=== PATIENT | female | born 1995 | race Caucasian/White ===

== ENCOUNTER → 2022-05-02 14:04 | Outpatient (BNVA) | payer SELFPAY | PROVIDERS: PCP Pediatrics Adolescent Medicine | DX: Z02.83 Encounter for blood-alcohol and blood-drug test (principal) ==

== ENCOUNTER → 2023-08-29 10:19 | Outpatient (BNVA) | payer SELFPAY | PROVIDERS: PCP Pediatrics Adolescent Medicine | DX: Z02.0 Encounter for examination for admission to educational institution (principal) ==

== ENCOUNTER → 2024-04-06 10:22 | Outpatient (BNVA) | payer SELFPAY | PROVIDERS: PCP Pediatrics Adolescent Medicine | DX: Z02.79 Encounter for issue of other medical certificate (principal) ==

== ENCOUNTER → 2024-04-30 10:28 | Outpatient (BNVA) | payer SELFPAY | PROVIDERS: PCP Pediatrics Adolescent Medicine | DX: Z02.0 Encounter for examination for admission to educational institution (principal) ==